=== PATIENT | male | born 1945 | race Caucasian/White ===

== ENCOUNTER → 2019-02-28 14:25 | Outpatient (CLI) | payer MEDICARE, BC, SELFPAY ==
--- NOTE | 2019-02-28 14:33 | XR_ITS ---
XR hip RT 2-3V w/pelvis HISTORY: ITS.REASON: S/P FALL, RT HIP PAIN ORDERING PHYSICIAN: John De Los Santos MD PATIENT AGE: 73 years COMPARISON: None FINDINGS: No fracture or dislocation is evident. No significant degenerative change. No lytic or blastic change. Soft tissue calcification is noted in the left inguinal region. IMPRESSION: Negative right hip
== END ==
PROVIDERS: PCP Family Medicine; Visit Provider Family Medicine
DX: M25.551 Pain in right hip (principal)
CPT/HCPCS: 73502

== ENCOUNTER → 2020-04-12 14:28 | Outpatient (CLI) | payer MEDICARE, BC, SELFPAY ==
--- NOTE | 2020-04-12 14:33 | XR_ITS ---
PROCEDURE: XR KNEE RT 4V CLINICAL INDICATION: knee pain COMPARISON: No exams were available for comparison FINDINGS: No fracture or dislocation. No lytic or blastic change. There is normal mineralization. There are mild osteoarthritic changes of the medial compartment and patellofemoral joint. A small suprapatellar effusion is noted. Other findings:None. 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
--- NOTE | 2020-04-12 14:33 | XR_ITS ---
PROCEDURE: XR KNEE LT 4V CLINICAL INDICATION: knee pain COMPARISON: No exams were available for comparison FINDINGS: No fracture or dislocation. No lytic or blastic change. There is normal mineralization. There are mild osteoarthritic changes of the medial compartment and patellofemoral joint. 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
--- NOTE | 2020-04-12 17:07 | XR_ITS ---
PROCEDURE: XR HAND RT MIN 3V CLINICAL INDICATION: PAIN IN R HAND COMPARISON: No exams were available for comparison FINDINGS: No fracture or dislocation. No lytic or blastic change. There is normal mineralization. There are osteoarthritic changes of the 1st interphalangeal joint. Small metallic fragment is present along the dorsal and proximal aspect of the proximal phalanx of the 2nd finger. Osteoarthritis also at the DIP joint of the 2nd through 5th fingers and the PIP joint of the 5th digit. Other findings:None. IMPRESSION: Osteoarthritic changes Metallic foreign body at the 2nd proximal phalanx Dictated by: Marvin Coleman MD 04/12/2020 22:26 Electronically signed by Marvin Coleman MD in [place] 04/12/2020 22:26
== END ==
PROVIDERS: PCP Family Medicine; Referring Provider Orthopaedic Surgery; Visit Provider Family Medicine
DX: M25.562 Pain in left knee (principal); M25.561 Pain in right knee; M79.641 Pain in right hand
CPT/HCPCS: 73130; 73564

== ENCOUNTER 2021-05-31 09:57 | Emergency (ER) | payer MEDICARE, BC, SELFPAY ==
[2021-05-31 10:56] VITALS: BP 136/70; PULSE 67; RESP 16; TEMP 36.6; O2SAT 96; BMI 25.6
--- NOTE | 2021-05-31 11:06 | HMH.EDUTC ---
[facility] [place] [facility] [place] Clinical Impression: Exposure to COVID-19 virus Disposition: Home, Self-Care Condition on Discharge: Good Instructions: DI for COVID-19 (Suspected or Confirmed ), Preventing the Spread of Coronavirus Discharge Instructions Additional Instructions: Drink plenty of fluids. Take tylenol for pain or fever. Return if you begin to have difficulty breathing. Follow up with your regular doctor. GO TO THE ER FOR ANY CONCERNING OR WORSENING SYMPTOMS Quarantine until you know the results of your covid-19 test. If it is positive, the health department should call you and give you further instructions about your length of Quarantine and other things. Notify your school or workplace of your results and follow their instructions regarding return to work/school. Referrals: John De Los Santos MD [Primary Care Provider] - Time of Disposition: 11:07 Medical Decision Making - Medical Records Medical records reviewed: No: I reviewed the patient's medical records. - Naun Inquiry Pt receiving controlled substance: No Vital Signs: 05/31/21 10:56 05/31/21 11:07 Temperature 97.8 F 97.8 F Temperature Source Oral Pulse Rate 67 Pulse Rate [Left] 67 Respiratory Rate 16 16 Blood Pressure 136/70 Blood Pressure [Right Arm] 136/70 Blood Pressure Mean [Right Arm] 92 02 Sat by Pulse Oximetry 96 [facility] [place] [facility] [place] HPI - General Stated complaint: covid test , exposure Time Seen by Provider: 05/31/21 11:06 Mode of Arrival: Ambulatory Source of Information: Patient Limitations: No Limitations Description of Symptoms (Recalled from Triage Doc. by RN): pt was exposed to covid positive pt on may.27 HEENT Symptoms (Recalled from RN notes): No Resp Symptoms (Recalled from RN notes): No Skin Symptoms (Recalled from RN notes): No MS Symptoms (Recalled from RN notes): No Functional Status (Recalled from RN notes): na - History of Present Illness Provider Complaint: He has been exposed to covid-19 thru having lunch with a friend several days ago. He denies any symptoms so far. - Related Data Home Medications Medication Instructions Recorded Confirmed No Known Home Medications 06/03/20 Allergies Allergy/AdvReac Type Severity Reaction Status Date / Time CLINDAMYCIN Allergy Unknown Uncoded 06/03/20 09:17 From OMNICEF Allergy Unknown Uncoded 09/10/20 09:17 SULFA (SULFONAMIDE) Allergy Unknown Uncoded 06/03/20 09:17 - Worker's Comp Is this a Worker's Comp case?: No [facility] History - Hepatitis A Screen Drug use history?: No High risk sexual behaviors?: No History of sexually transmitted infection?: No Currently employed?: No Childcare worker?: No Do you have indoor plumbing?: Yes Do you have electricity?: Yes Attestation statement:: This patient has been screened for Hepatitis A risk factors. I have reviewed the patient's past medical history: Yes Other Surgeries: Yes: Colonoscopy - Social History Smoking Status: Never smoker Alcohol Intake: never Occupational Status: other ROS Obtained: Yes All systems reviewed & no additional complaints - Constitutional Constitutional: Reports system reviewed and no additional complaints, except as docu - Eyes Eyes: Reports system reviewed and no additional complaints, except as docu - ENT Ears, Nose, Mouth, and Throat: Reports system reviewed and no additional complaints, except as docu - Cardiovascular Cardiovascular: Reports system reviewed and no additional complaints, except as docu - Respiratory Respiratory: Reports system reviewed and no additional complaints, except as docu - Gastrointestinal Gastrointestingal: Reports: system reviewed and no additional complaints, except as docu Physical Exam - General General appearance: alert, in no apparent distress - Head Head exam: atraumatic, normocephalic, normal inspection - Eye Eye exam: Present: normal appearance, PERRL, EOMI - ENT ENT exam: Present: normal exam,
[2021-05-31 11:07] VITALS: BP 136/70; PULSE 67; RESP 16; TEMP 36.6
== END 2021-05-31 11:25 | disposition home or self-care (01) ==
PROVIDERS: Emergency Provider Nurse Practitioner Family; PCP Family Medicine
DX: Z20.822 Contact with and (suspected) exposure to COVID-19 (principal)
CPT/HCPCS: G0463; 99202; U0003

== ENCOUNTER → 2023-03-15 13:02 | Outpatient (CLI) | payer MEDICARE, BC, SELFPAY ==
--- NOTE | 2023-03-15 13:12 | XR_ITS ---
FINAL REPORT CLINICAL HISTORY: Medial right foot pain and swelling COMPARISON: None FINDINGS: RIGHT FOOT 3 views of the right foot were obtained. There is no acute fracture or dislocation. There is a moderate plantar spur. Visualized joint spaces are normally aligned. Soft tissues are unremarkable. IMPRESSION: No acute bony abnormality. Reviewed, Interpreted and Dictated by Adam Lemons MD Transcribed by Shayla Guardado Authenticated and [facility] [place]
--- NOTE | 2023-03-15 13:12 | XR_ITS ---
FINAL REPORT CLINICAL HISTORY: Medial left foot pain and swelling COMPARISON: None FINDINGS: LEFT FOOT Three views of the left foot demonstrate no acute fracture or dislocation. There is a moderate plantar spur. There is mild hypertrophic osteoarthritis in the first IP joint. The visualized joint spaces are normally aligned. The soft tissues are unremarkable. IMPRESSION: No acute bony abnormality. Reviewed, Interpreted and Dictated by Adam Lemons MD Transcribed by Shayla Guardado Authenticated and [facility]
--- NOTE | 2023-03-15 13:12 | XR_ITS ---
FINAL REPORT CLINICAL HISTORY: Medial left ankle pain and swelling COMPARISON: None FINDINGS: LEFT ANKLE Three views demonstrate no acute fracture or dislocation. There is a moderate plantar spur. The mortise is intact. The visualized joint spaces are normally aligned. The soft tissues are unremarkable. IMPRESSION: No acute bony abnormality. Reviewed, Interpreted and Dictated by Adam Lemons MD Transcribed by Shayla Guardado Authenticated and [facility]
--- NOTE | 2023-03-15 13:12 | XR_ITS ---
FINAL REPORT CLINICAL HISTORY: Medial right ankle pain and swelling COMPARISON: None FINDINGS: RIGHT ANKLE 3 views of the right ankle were obtained. There is no acute fracture or dislocation. There is a moderate plantar spur. The mortise is intact. Visualized joint spaces are normally aligned. Soft tissues are unremarkable. IMPRESSION: No acute bony abnormality. Reviewed, Interpreted and Dictated by Adam Lemons MD Transcribed by Shayla Guardado Authenticated and [facility]
== END ==
PROVIDERS: PCP Family Medicine; Visit Provider Nurse Practitioner Family
DX: M25.571 Pain in right ankle and joints of right foot (principal); M25.572 Pain in left ankle and joints of left foot; M79.671 Pain in right foot; M79.672 Pain in left foot
CPT/HCPCS: 73610; 73630

== ENCOUNTER 2023-03-15 17:19 | Emergency (ER) | payer MEDICARE, BC, SELFPAY ==
[2023-03-15 17:28] VITALS: BP 151/72; PULSE 54; RESP 16; TEMP 36.1; O2SAT 99; BMI 24.6
--- NOTE | 2023-03-15 17:44 | PC.NURSE ---
laceration cleaned with saline and hibiclens wrapped in 4x4 and coban
--- NOTE | 2023-03-15 19:03 | PC.NURSE ---
rounded on patient, no needs at this time. at bedside
--- NOTE | 2023-03-15 19:10 | PC.NURSE ---
Report handed off to tool chaser
--- NOTE | 2023-03-15 19:15 | HMH.EDWNDL ---
Discharge Plan Disposition Patient Disposition: Home, Self-Care Chief Complaint: Wound/Laceration Prescriptions Prescriptions: No Action losartan 50 mg tablet 50 mg PO simvastatin 10 mg tablet 10 mg PO tamsulosin 0.4 mg capsule PO Eliquis 5 mg tablet 5 mg PO Multaq 400 mg tablet 400 mg PO omeprazole 20 mg capsule,delayed release(DR/EC) 20 mg PO bupropion HCl 150 mg tablet extended release 24 hr PO desvenlafaxine succinate 100 mg tablet extended release 24 hr 100 mg PO Referrals Follow up/Referrals: John De Los Santos MD [Primary Care Provider] - See instructions Clinical Impressions Clinical Impression: Laceration of left thumb Instructions Patient Instructions: DI for Laceration Repair Discharge ED Provider: Demetrius Corbett Wound/Laceration HPI General Chief Complaint: Wound/Laceration Stated Complaint: AO 03/15,Left thumb laceration Time Seen by Provider: 03/15/23 18:42 Mode of Arrival: Ambulatory Source of Information: Patient and Spouse Limitations: No Limitations Description of Symptoms (Recalled from ER Triage Doc. 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 UTD Tetanus. +Eliquis. Bleeding uncontrolled at this time. History of Present Illness HPI narrative: 77-year-old white male was working in his shop and hack saw blade slipped. He has 1 cm laceration of his. He is on blood thinners and is desiring to have this repaired. He lists allergies to Omnicef sulfa and clindamycin. Other medical problems include bilateral foot and ankle pain and hypertension and atrial fibrillation Related Data Home Medications Medication Instructions Recorded Confirmed apixaban 5 mg tablet (Eliquis) 5 mg PO 03/15/23 03/15/23 bupropion HCl 150 mg 24 hr tablet, tab PO 03/15/23 03/15/23 extended release desvenlafaxine succinate 100 mg 100 mg PO 03/15/23 03/15/23 tablet,extended release 24 hr dronedarone 400 mg tablet (Multaq) 400 mg PO 03/15/23 03/15/23 losartan 50 mg tablet 50 mg PO 03/15/23 03/15/23 omeprazole 20 mg capsule,delayed 20 mg PO 03/15/23 03/15/23 release simvastatin 10 mg tablet 10 mg PO 03/15/23 03/15/23 tamsulosin 0.4 mg capsule cap PO 03/15/23 03/15/23 Allergies Allergy/AdvReac Type Severity Reaction Status Date / Time cefdinir [From Omnicef] AdvReac Verified 03/15/23 11:40 SULFA (SULFONAMIDE) Allergy Unknown Uncoded 06/03/20 09:17 CLINDAMYCIN AdvReac Unknown Uncoded 03/15/23 11:39 [facility] Disclaimer: The information contained in this section may have been updated after the patient was seen, as this information can be updated by other users. Medical History Arthritis Hypertension Social History Smoking Status: Never smoker alcohol intake: never current occupational status: other Travel in the last 8 weeks: None ROS Obtained: Yes Systems reviewed as appropriate & no additional complaints except as documented Physical Exam General General appearance: alert and in no apparent distress Head Head exam: atraumatic and normocephalic Eye Eye exam: Present normal appearance and PERRL Chest Chest inspection: Present normal inspection Respiratory Respiratory exam: Present normal lung sounds bilaterally Cardiovascular Cardiovascular exam: Present regular rate and irregular rhythm Abdominal Exam Abdominal exam: Present soft; Absent tenderness Extremities Exam Extremities exam: Present other (Left thumb laceration) Neurological Exam Neurological exam: Present alert, oriented X3 and CN II-XII intact Medical Decision Making Medical Records MR Comment: He has [id number] white male that is left on a hack saw earlier today. Had a 1 cm laceration which is anesthetized with a digital block with lidocaine without epinephrine. We have prepped with Betadine and
[2023-03-15 20:37] VITALS: BP 138/71; PULSE 62; RESP 16; TEMP 36.1; O2SAT 99
== END 2023-03-15 20:44 | disposition home or self-care (01) ==
PROVIDERS: Emergency Provider Emergency Medicine; PCP Family Medicine
DX: S61.012A Laceration without foreign body of left thumb without damage to nail, initial encounter (principal); I48.91 Unspecified atrial fibrillation; I10 Essential (primary) hypertension; Z79.01 Long term (current) use of anticoagulants; W27.0XXA Contact with workbench tool, initial encounter
CPT/HCPCS: 12001; 73610; 73630; 99283; 99284

== ENCOUNTER 2024-02-13 07:28 | Outpatient (CLI) | payer MEDICARE, BC, SELFPAY ==
--- NOTE | 2024-02-13 | CA_ITS ---
FINAL REPORT TECHNIQUE: Multiple transverse and longitudinal images were performed of the right femoral-popliteal deep venous system with augmentation and compression maneuvers. CLINICAL HISTORY: RIGHT POSTERIOR KNEE PAIN COMPARISON: None FINDINGS: Right lower extremity duplex ultrasound demonstrates normal flow in the deep venous system. There is no abnormal echogenicity to suggest thrombus. There is normal compression and augmentation. There is a 5 cm cyst in the right popliteal fossa. IMPRESSION: No evidence of right DVT. 5 cm popliteal cyst. Reviewed, Interpreted and Dictated by Adam Lemons MD Transcribed by Shayla Guardado Authenticated and [facility]
== END 2024-02-13 23:59 | disposition home or self-care (01) ==
LOC: RT 07:28
PROVIDERS: PCP Family Medicine; Visit Provider Family Medicine
DX: M79.604 Pain in right leg (principal); M79.661 Pain in right lower leg
CPT/HCPCS: 93971

== ENCOUNTER 2024-04-22 12:07 | Emergency (ER) | payer MEDICARE, BC, SELFPAY ==
[2024-04-22] VITALS (11 sets, daily range): BP systolic 121–174; BP diastolic 66–113; PULSE 74–136; RESP 14–20; TEMP 36.7–36.9; O2SAT 90–96; BMI 23.9
[2024-04-22 12:49] LABS: Microscopic, Urine URINE MICROSCOPIC (MICROSCOPIC)
[2024-04-22 12:59] LABS: Appearance,Urine CLEAR (Clear); Bilirubin,Urine Negative (Negative); Blood, Urine TRACE-I (Negative); Color,Urine YELLOW (Yellow); Glucose,Urine (UA) Negative (Negative); Ketones,Urine Negative (Negative); Leukocyte Esterase,Urine Negative (Negative); Nitrate,Urine Negative (Negative); Protein,Urine Negative (Negative); Urobilinogen,Urine 0.2 EU/dl (0.2)
--- NOTE | 2024-04-22 13:09 | CT_ITS ---
FINAL REPORT TECHNIQUE: After the administration of oral and intravenous contrast, axial images were obtained through the abdomen and pelvis by computed tomography. The study was performed with techniques to keep radiation dose as low as reasonably achievable, (ALARA). Individual dose reduction techniques using automated exposure control or adjustment of mA and/or kV according to the patient's size were employed. CLINICAL HISTORY: urinary retention FINDINGS: Abdomen: The lung bases are clear. There is mild fatty infiltration of the liver. The gallbladder is distended. There is a stone in the dependent portion of the gallbladder. There is a small sliding-type hiatal hernia. The spleen, pancreas, adrenals and kidneys appear unremarkable. The aorta is normal in caliber. There is no free fluid or adenopathy. There is mild bilateral hydronephrosis and hydroureter. Pelvis: The appendix is not identified. Ozuna catheter is seen in a decompressed urinary bladder. The prostate is enlarged measuring 6.1 cm in transverse dimension. There is no free fluid or adenopathy. IMPRESSION: Gallstone in the dependent portion of the gallbladder. Mild bilateral hydronephrosis and hydroureter which may be due to mild cystitis or bladder outlet obstruction, favor the former. Reviewed, Interpreted and Dictated by Adam Lemons MD Transcribed by Debby Vicente Authenticated and [facility]
[2024-04-22 13:15] LABS: RBC,Urine Occasional #/hpf (0-3)
--- NOTE | 2024-04-22 13:18 | ED_ITS ---
Discharge Plan Disposition Patient Disposition: Home, Self-Care Condition: Good Prescriptions Prescriptions: No Action losartan 50 mg tablet 50 mg PO simvastatin 10 mg tablet 10 mg PO tamsulosin 0.4 mg capsule PO Eliquis 5 mg tablet 5 mg PO Multaq 400 mg tablet 400 mg PO omeprazole 20 mg capsule,delayed release(DR/EC) 20 mg PO bupropion HCl 150 mg tablet extended release 24 hr PO desvenlafaxine succinate 100 mg tablet extended release 24 hr 100 mg PO Referrals Follow up/Referrals: John De Los Santos MD [Primary Care Provider] - See instructions Activity Restrictions/Add. Instructions Additional Instructions/Restrictions: You were evaluated in the emergency department today. You had a new Rascon catheter placed given that you are not able to urinate. Please follow-up closely with your primary care provider and your urologist for reassessment. Monitor urine output. If you find that you are dumping >200 mL per hour or experience symptoms such as lightheadedness, fainting, or other concerns, please return right away. Clinical Impressions Clinical Impression: Acute urinary retention, Hydronephrosis Instructions Patient Instructions: How to Care for Your Rascon Catheter -- Male, DI for Urinary Retention in Men Print Language Print Language: Surinamese Discharge ED Provider: Ruby Smith General Adult HPI <Keturah Christie MD - Last Filed: 04/22/24 15:10> General Chief complaint: Urogenital-Male Stated complaint: uti Time Seen by Provider: 04/22/24 12:13 Mode of Arrival: Family Vehicle Source of Information: Patient and Spouse Limitations: No Limitations Description of Symptoms (Recalled from ER Triage Doc. by RN): Pt presents to ER with concerns for possible UTI. States he had R knee surgery on Sun (04/16) and developed urinary retention the following day and urology placed rascon cath. Cath was removed yesterday (04/21). Today, pt is having a dull pain to his lower abd with frequency and burning with urination. History of Present Illness HPI narrative: 78-year-old male presents to the ER for concerns of urinary retention. Patient had right knee surgery on 04/16 and had problems with hematuria and urinary retention the following day. Rascon catheter was placed and patient was evaluated by urology who encouraged the catheter to be removed on 04/21. This was removed as directed and patient initially was able to urinate, however his ability to urinate has decreased in the last 24 hours and today he is having persistent pressure and pain in his lower abdomen with frequency and dysuria. He is only able to get out a small amount of urine each time. He states he is supposed to be doing therapy exercises in the prone position but is unable to lay on his stomach due to the discomfort in the low abdomen. Patient is here for further evaluation. He denies any fevers, chills, headache, dizziness, chest pain, shortness of breath, nausea, vomiting, diarrhea, or other associated symptoms. He states he has no complaints or concerns with the knee/leg. Related Data Home Medications ?Medication ?Instructions ?Recorded ?Confirmed apixaban 5 mg tablet (Eliquis) 5 mg PO 03/15/23 03/15/23 bupropion HCl 150 mg 24 hr tablet, tab PO 03/15/23 03/15/23 extended release desvenlafaxine succinate 100 mg 100 mg PO 03/15/23 03/15/23 tablet,extended release 24 hr dronedarone 400 mg tablet (Multaq) 400 mg PO 03/15/23 03/15/23 losartan 50 mg tablet 50 mg PO 03/15/23 03/15/23 omeprazole 20 mg capsule,delayed 20 mg PO 03/15/23 03/15/23 release simvastatin 10 mg tablet 10 mg PO 03/15/23 03/15/23 tamsulosin 0.4 mg capsule cap PO 03/15/23 03/15/23 Allergies Allergy/AdvReac Type Severity Reaction Status Date / Time clindamycin Allergy Unknown Verified 04/22/24 14:06 allergy reaction Sulfa (Sulfonamide Allergy Unknown Verified 04/22/24 14:06 Antibiotics) allergy reaction cefdinir [From Omnicef] AdvReac Unknown Verified 04/22/24 14:06 allergy reaction PFSH <Keturah Christie MD - Last Filed: 04/22/24 15:10> [facility] Disclaimer: The information contained in this section may have been updated after the patient was seen, as this information can be updated by other users. Medical History Arthritis Hypertension Social History Smoking Status: Never smoker alcohol intake: never current occupational status: other Travel in the last 8 weeks: None <Keturah Christie MD - Last Filed: 04/22/24 15:10> ROS Obtained: Yes All systems reviewed & no additional complaints except as documented Physical Exam <Keturah Christie MD - Last Filed: 04/22/24 15:10> General General appearance: alert and in no apparent distress Head Head exam: atraumatic and normocephalic Eye Eye exam: Present PERRL and EOMI ENT ENT exam: Present mucous membranes moist Neck Neck exam: Present normal inspection and full ROM Chest Chest inspection: Present symmetric chest wall rise Respiratory Respiratory exam: Present normal lung sounds bilaterally; Absent respiratory distress, wheezes or stridor Cardiovascular Cardiovascular exam: Present normal rhythm and tachycardia Abdominal Exam Abdominal exam: Present soft and tenderness; Absent distention, guarding or rebound Abdominal tenderness: Present suprapubic and moderate Extremities Exam Extremities exam: Present other (Right knee appears to be healing well, no abnormal swelling, heat, or pain); Absent calf tenderness Back Exam Back exam: Absent CVA tenderness (R) or CVA tenderness (L) Neurological Exam Neurological exam: Present alert and oriented X3; Absent motor sensory deficit Psychiatric Psychiatric exam: Present normal affect and normal mood Skin Skin exam: Present warm and dry Medical Decision Making <Keturah Christie MD - Last Filed: 04/22/24 15:10> Medical Records Medical records reviewed: Yes I reviewed the patient's medical records. Naun Inquiry Pt receiving controlled substance: No Vital Signs: 04/22/24 12:08 04/22/24 12:18 04/22/24 12:30 Temperature 98.4 F Temperature Source Oral Pulse Rate 128 H 111 H Pulse Rate [Right] 129 H Respiratory Rate 16 18 20 Blood Pressure 145/97 H 159/113 H Blood Pressure [Right Arm] 152/102 H Blood Pressure Mean [Right Arm] 118 Blood Pressure Source Blood Pressure Source [Right Arm] Automatic Cuff Blood Pressure Position 02 Sat by Pulse Oximetry 95 96 95 Oxygen Delivery Method Room Air Room Air 04/22/24 13:00 04/22/24 13:30 04/22/24 14:31 Temperature Temperature Source Pulse Rate 131 H 136 H 128 H Pulse Rate [Right] Respiratory Rate 15 15 14 Blood Pressure 174/112 H 142/95 H 138/93 H Blood Pressure [Right Arm] Blood Pressure Mean [Right Arm] Blood Pressure Source Blood Pressure Source [Right Arm] Blood Pressure Position 02 Sat by Pulse Oximetry 93 L 94 L 96 Oxygen Delivery Method Room Air Room Air 04/22/24 15:00 04/22/24 15:30 04/22/24 16:30 Temperature Temperature Source Pulse Rate 74 86 76 Pulse Rate [Right] Respiratory Rate 19 18 18 Blood Pressure 143/86 H 145/91 H 125/66 Blood Pressure [Right Arm] Blood Pressure Mean [Right Arm] Blood Pressure Source Blood Pressure Source [Right Arm] Blood Pressure Position 02 Sat by Pulse Oximetry 91 L 95 92 L Oxygen Delivery Method Room Air Room Air 04/22/24 17:00 04/22/24 17:42 Temperature 98.0 F Temperature Source Oral Pulse Rate 83 87 Pulse Rate [Right] Respiratory Rate 19 16 Blood Pressure 121/70 132/80 Blood Pressure [Right Arm] Blood Pressure Mean [Right Arm] Blood Pressure Source Automatic Cuff Blood Pressure Source [Right Arm] Blood Pressure Position Sitting 02 Sat by Pulse Oximetry 90 L Oxygen Delivery Method Room Air Lab Data Lab Results 04/22/24 12:13: Urine Color Yellow, Urine Appearance Clear, Urine pH 6.0, Ur Specific [place] 1.020, Urine Protein Negative, Urine Glucose (UA) Negative, Urine Ketones Negative, Urine Blood Trace-i, Urine Nitrate Negative, Urine Bilirubin Negative, Urine Urobilinogen 0.2, Ur Leukocyte Esterase Negative, Urine RBC Occasional, Urine WBC None, Ur Squamous Epith Cells None, Urine Bacteria None 04/22/24 13:25: WBC 9.6, RBC 4.52 L, Hgb 14.0 L, Hct 40.5 L, MCV 89.6, MCH 31.0, MCHC 34.5, RDW 14.0, Plt Count 317, MPV 7.4, Neut % (Auto) 69.4, Lymph % (Auto) 19.7, [place] % (Auto) 8.0, Eos % (Auto) 2.3, Baso % (Auto) 0.6, Neut # (Auto) 6.7, Lymph # (Auto) 1.9, [place] # (Auto) 0.8, Eos # (Auto) 0.2, Baso # (Auto) 0.1, Sodium 139, Potassium 4.1, Chloride 105, Carbon Dioxide 27, Anion Gap 11.1, BUN 19, Creatinine 1.00, Estimated Creat Clear 53, Estimated GFR 72, Est GFR ( Amer) 87, Glucose 100, Calcium 10.0, Total Bilirubin 1.0, AST 33, ALT 27, Alkaline Phosphatase 63, Total Protein 6.8, Albumin 4.1, Globulin 2.7, Albumin/Globulin Ratio 1.5 04/22/24 13:25 04/22/24 13:25 Orders (Tests/Meds): ED MEDICATIONS Discontinued Medications Generic Name Dose Route Start Last Admin Trade Name Freq PRN Reason Stop Dose Admin Lactated Ringer's 1,000 mls @ 999 mls/hr 04/22/24 13:09 04/22/24 13:30 Lactated Ringer's 1000 Ml Bag IV 04/22/24 14:09 999 mls/hr .Q1H1M ONE Administration Iopamidol 75 ml 04/22/24 14:04 04/22/24 14:04 Iopamidol-370 (76%);100ml Bottle IV 04/22/24 14:05 75 ml ONCE ONE Administration Sodium Chloride 10 ml 04/22/24 14:04 04/22/24 14:04 Sodium Chloride 0.9% 10ml Syr (Rad Only) IV 04/22/24 14:05 10 ml ONCE ONE Administration ORDERS Category Date Time Status CT abdomen pelvis w con Stat Cat Scan 04/22/24 13:09 Completed CBC w/Auto Diff [Complete Blood Count Auto Diff] Stat Lab 04/22/24 13:25 Completed CMP [Comprehensive Metabolic Panel] Stat Lab 04/22/24 13:25 Completed UA [Urinalysis and Microscopic] Stat Lab 04/22/24 12:13 Completed Medical Decision Narrative: In summary, this 78-year-old male presents to the emergency department today with bladder discomfort, urinary retention. On initial evaluation patient is tachycardic but hemodynamically stable, afebrile, resting comfortably. He has lower abdominal discomfort with palpation and obvious distention of the urinary bladder, no other findings on exam. Right knee appears to be healing well with no findings of abnormal swelling, erythema, or heat. Differential diagnosis includes but is not limited to urinary retention, obstructive nephropathy, electrolyte abnormality, kidney dysfunction, urinary retention, BPH, prostatic mass, other urinary obstruction. Based on these concerns, I ordered urine studies, CT imaging, serum labs. Patient received IV fluids for treatment. Labs personally reviewed demonstrate UA negative for any findings of infection. No leukocytosis, trace anemia, nonactionable, CMP normal, no findings of kidney dysfunction which is reassuring against obstructive nephropathy. CT abdomen pelvis personally interpreted demonstrates hydroureter, hydronephrosis, findings consistent with urinary obstruction but no obvious stone. Radiology read pending. Patient handed off to Dr. Smith at physician shift change pending CT results <Ruby N Luis, DO - Last Filed: 04/22/24 18:27> Vital Signs: 04/22/24 12:08 04/22/24 12:18 04/22/24 12:30 Temperature 98.4 F Temperature Source Oral Pulse Rate 128 H 111 H Pulse Rate [Right] 129 H Respiratory Rate 16 18 20 Blood Pressure 145/97 H 159/113 H Blood Pressure [Right Arm] 152/102 H Blood Pressure Mean [Right Arm] 118 Blood Pressure Source Blood Pressure Source [Right Arm] Automatic Cuff Blood Pressure Position 02 Sat by Pulse Oximetry 95 96 95 Oxygen Delivery Method Room Air Room Air 04/22/24 13:00 04/22/24 13:30 04/22/24 14:31 Temperature Temperature Source Pulse Rate 131 H 136 H 128 H Pulse Rate [Right] Respiratory Rate 15 15 14 Blood Pressure 174/112 H 142/95 H 138/93 H Blood Pressure [Right Arm] Blood Pressure Mean [Right Arm] Blood Pressure Source Blood Pressure Source [Right Arm] Blood Pressure Position 02 Sat by Pulse Oximetry 93 L 94 L 96 Oxygen Delivery Method Room Air Room Air 04/22/24 15:00 04/22/24 15:30 04/22/24 16:30 Temperature Temperature Source Pulse Rate 74 86 76 Pulse Rate [Right] Respiratory Rate 19 18 18 Blood Pressure 143/86 H 145/91 H 125/66 Blood Pressure [Right Arm] Blood Pressure Mean [Right Arm] Blood Pressure Source Blood Pressure Source [Right Arm] Blood Pressure Position 02 Sat by Pulse Oximetry 91 L 95 92 L Oxygen Delivery Method Room Air Room Air 04/22/24 17:00 04/22/24 17:42 Temperature 98.0 F Temperature Source Oral Pulse Rate 83 87 Pulse Rate [Right] Respiratory Rate 19 16 Blood Pressure 121/70 132/80 Blood Pressure [Right Arm] Blood Pressure Mean [Right Arm] Blood Pressure Source Automatic Cuff Blood Pressure Source [Right Arm] Blood Pressure Position Sitting 02 Sat by Pulse Oximetry 90 L Oxygen Delivery Method Room Air Lab Data Lab Results 04/22/24 12:13: Urine Color Yellow, Urine Appearance Clear, Urine pH 6.0, Ur Specific [place] 1.020, Urine Protein Negative, Urine Glucose (UA) Negative, Urine Ketones Negative, Urine Blood Trace-i, Urine Nitrate Negative, Urine Bilirubin Negative, Urine Urobilinogen 0.2, Ur Leukocyte Esterase Negative, Urine RBC Occasional, Urine WBC None, Ur Squamous Epith Cells None, Urine Bacteria None 04/22/24 13:25: WBC 9.6, RBC 4.52 L, Hgb 14.0 L, Hct 40.5 L, MCV 89.6, MCH 31.0, MCHC 34.5, RDW 14.0, Plt Count 317, MPV 7.4, Neut % (Auto) 69.4, Lymph % (Auto) 19.7, [place] % (Auto) 8.0, Eos % (Auto) 2.3, Baso % (Auto) 0.6, Neut # (Auto) 6.7, Lymph # (Auto) 1.9, [place] # (Auto) 0.8, Eos # (Auto) 0.2, Baso # (Auto) 0.1, Sodium 139, Potassium 4.1, Chloride 105, Carbon Dioxide 27, Anion Gap 11.1, BUN 19, Creatinine 1.00, Estimated Creat Clear 53, Estimated GFR 72, Est GFR ( Amer) 87, Glucose 100, Calcium 10.0, Total Bilirubin 1.0, AST 33, ALT 27, Alkaline Phosphatase 63, Total Protein 6.8, Albumin 4.1, Globulin 2.7, Albumin/Globulin Ratio 1.5 Orders (Tests/Meds): ED MEDICATIONS Discontinued Medications Generic Name Dose Route Start Last Admin Trade Name Freq PRN Reason Stop Dose Admin Lactated Ringer's 1,000 mls @ 999 mls/hr 04/22/24 13:09 04/22/24 13:30 Lactated Ringer's 1000 Ml Bag IV 04/22/24 14:09 999 mls/hr .Q1H1M ONE Administration Iopamidol 75 ml 04/22/24 14:04 04/22/24 14:04 Iopamidol-370 (76%);100ml Bottle IV 04/22/24 14:05 75 ml ONCE ONE Administration Sodium Chloride 10 ml 04/22/24 14:04 04/22/24 14:04 Sodium Chloride 0.9% 10ml Syr (Rad Only) IV 04/22/24 14:05 10 ml ONCE ONE Administration ORDERS Category Date Time Status CT abdomen pelvis w con Stat Cat Scan 04/22/24 13:09 Completed CBC w/Auto Diff [Complete Blood Count Auto Diff] Stat Lab 04/22/24 13:25 Completed CMP [Comprehensive Metabolic Panel] Stat Lab 04/22/24 13:25 Completed UA [Urinalysis and Microscopic] Stat Lab 04/22/24 12:13 Completed Medical Decision Narrative: In summary, this 78-year-old male presents to the emergency department today with bladder discomfort, urinary retention. On initial evaluation patient is tachycardic but hemodynamically stable, afebrile, resting comfortably. He has lower abdominal discomfort with palpation and obvious distention of the urinary bladder, no other findings on exam. Right knee appears to be healing well with no findings of abnormal swelling, erythema, or heat. Differential diagnosis includes but is not limited to urinary retention, obstructive nephropathy, electrolyte abnormality, kidney dysfunction, urinary retention, BPH, prostatic mass, other urinary obstruction. Based on these concerns, I ordered urine studies, CT imaging, serum labs. Patient received IV fluids for treatment. Labs personally reviewed demonstrate UA negative for any findings of infection. No leukocytosis, trace anemia, nonactionable, CMP normal, no findings of kidney dysfunction which is reassuring against obstructive nephropathy. CT abdomen pelvis personally interpreted demonstrates hydroureter, hydronephrosis, findings consistent with urinary obstruction but no obvious stone. Radiology read pending. Patient handed off to Dr. Smith at physician shift change pending CT results Luis DO: I assumed care of the patient at 1500. Patient has had 1.5 L of urine output at this point. CT scan does not demonstrate any acutely concerning process aside from hydronephrosis and hydroureter bilaterally in the setting of bladder outflow obstruction. I presume this is from his bladder outflow obstruction and will resolve now that this has been taking care of. Given that the patient had a significant amount of urine output quickly, I concern he could potentially develop postobstructive diuresis. Will monitor him for 2 hours in the emergency department to make sure he does not have greater than 200 cc/h. At 1530, patient was placed in ED observation status pending monitoring of urine output to ensure that he does not reach 1.9 L x 530 p.m. to determine whether or not the patient would be appropriate for discharge versus admission for electrolyte monitoring. The patient was provided serial reevaluations and cardiac monitoring while awaiting ultimate disposition. On multiple subsequent reassessments, the patient's urine output significantly slowed and he only had an additional 200 cc of urine output for the whole 2-hour period. Given this, he does not meet criteria for postobstructive diuresis at this time. He is feeling fine and is able to get up and move around without issue. Given this, at 1740 he was deemed to be appropriate for discharge home with close follow-up with primary care and urology. Strict return precautions were given and I did advise that he monitor his urine output. Patient was discharged after all questions were answered. He was in ED observation status for a period of 2 hours and 10 minutes. Critical Care <Keturha Christie MD - Last Filed: 04/22/24 15:10> Critical Care Time Critical Care Time: No
[2024-04-22] MEDS: LACTATED RINGERS 1000ML 1,000 ML 999 ML IV (13:30)
[2024-04-22 13:44] LABS: Albumin Level 4.1 g/dl (3.5-5.0); Chloride 105 mmol/L (98-107); Potassium 4.1 mmoL/L (3.5-5.1); Sodium 139 mmol/L (136-145)
[2024-04-22 13:47] LABS: Alanine Aminotransferase 27 U/L (12-78); Albumin/Globulin Ratio 1.5 (1.1-1.8); Alkaline Phosphatase 63 U/L (38-126); Anion Gap 11.1 mEq/L (5-15); Aspartate Amino Transferase 33 U/L (17-59); Blood Urea Nitrogen 19 mg/dl (9-20); Carbon Dioxide 27 mmol/L (22.0-30.0); Creatinine Clearance Estimated 53 mL/min (50-200); Estimated Glomerular Filt Rate 72 ml/min (>60); GFR (African American) 87 ML/MIN (>60); Globulin 2.7 g/dL (1.3-3.2); Glucose 100 mg/dl (74-100); Total Protein,Serum 6.8 g/dl (6.3-8.2)
[2024-04-22 13:58] LABS: Basophils # 0.1 K/mm3 (0-0.2); Basophils % 0.6 % (0.1-2.0); Eosinophils # 0.2 K/mm3 (0.0-0.4); Eosinophils % 2.3 % (0.1-12.0); Hematocrit 40.5 % (42.0-52.0); Lymphocytes # 1.9 K/mm3 (0.7-4.5); Lymphocytes % 19.7 % (10-50); Mean Corpuscular HGB Conc 34.5 g/dL (31.8-35.4); Mean Corpuscular Volume 89.6 fl (80-94); Mean Platelet Volume 7.4 fl (7.4-10.4); Monocytes # 0.8 K/mm3 (0.1-1.0); Neutrophils # 6.7 K/mm3 (1.8-7.8); Neutrophils % 69.4 % (37.0-80.0); Platelet Count 317 K/mm3 (142-424); Red Blood Count 4.52 M/mm3 (4.60-6.20); White Blood Count 9.6 K/mm3 (4.8-10.8)
--- NOTE | 2024-04-22 13:59 | PC.NURSE ---
pt taken to ct scan
[2024-04-22] MEDS: IOPAMIDOL-370 (76%);100ML BOTTLE 75 ML IV (14:04)
[2024-04-22] MEDS: SODIUM CHLORIDE 0.9% 10ML SYR (RAD ONLY) 10 ML IV (14:04)
== END 2024-04-22 17:43 | disposition home or self-care (01) ==
PROVIDERS: Emergency Medicine; Emergency Provider Emergency Medicine; PCP Family Medicine
DX: R10.30 Lower abdominal pain, unspecified (principal); N13.30 Unspecified hydronephrosis; N13.4 Hydroureter; K80.20 Calculus of gallbladder without cholecystitis without obstruction; R33.9 Retention of urine, unspecified; R30.0 Dysuria; R35.0 Frequency of micturition; I10 Essential (primary) hypertension
CPT/HCPCS: 51702; 74177; 80053; 81001; 85025; 96360; 99284; J7120; Q9967

== ENCOUNTER 2024-05-08 15:26 | Outpatient (CLI) | payer MEDICARE, BC, SELFPAY ==
[2024-05-08 15:34] LABS: Adenovirus F 40/41, stool Not Detected (NotDetected); Astrovirus Not Detected (NotDetected); Campylobacter Not Detected (NotDetected); Clostridium Difficile A/B, PCR Not Detected (NotDetected); Cryptosporidium Not Detected (NotDetected); Cyclospora Cayetanesis Not Detected (NotDetected); Entamoeba histolytica Not Detected (NotDetected); Enteroaggregative E coli Not Detected (NotDetected); Enteropathogenic E coli Not Detected (NotDetected); Enterotoxigenic E coli Not Detected (NotDetected); Giardia lamblia Not Detected (NotDetected); Norovirus Not Detected (NotDetected); Plesimonas Shigalloides, PCR Not Detected (NotDetected); Rotavirus A Not Detected (NotDetected); Salmonella, PCR Not Detected (NotDetected); Sapovirus Not Detected (NotDetected); Shiga-like toxin E coli Not Detected (NotDetected); Shigella Enterovasive E coli Not Detected (NotDetected); Vibrio Cholerae Not Detected (NotDetected); Vibrio, PCR Not Detected (NotDetected); Yersinia Entercolitica, PCR Not Detected (NotDetected)
== END 2024-05-08 23:59 | disposition home or self-care (01) ==
LOC: LAB.DROPOF 15:29
PROVIDERS: PCP Family Medicine; Visit Provider Family Medicine
DX: R19.7 Diarrhea, unspecified (principal)
CPT/HCPCS: 87507

== ENCOUNTER 2024-05-20 12:40 | Outpatient (CLI) | payer MEDICARE, BC, SELFPAY ==
[2024-05-20] MEDS: ERTAPENEM SODIUM 1 GM in 0.9 % SODIUM CHLORIDE 50 ML IV (12:59)
[2024-05-20] MEDS: SODIUM CHLORIDE 0.9% 50ML BAG 50 ML IV (12:59)
[2024-05-20] MEDS: SODIUM CHLORIDE 0.9% 10ML FLUSH SYRINGE 10 ML IV (12:59)
[2024-05-20 13:00] VITALS: BP 106/55; PULSE 58; RESP 18; TEMP 36.6; O2SAT 98
[2024-05-20 13:50] VITALS: BP 123/58; PULSE 59; RESP 18; O2SAT 98
== END 2024-05-20 13:55 | disposition home or self-care (01) ==
LOC: INF 12:44
PROVIDERS: PCP Family Medicine
DX: N13.30 Unspecified hydronephrosis (principal)
CPT/HCPCS: 96365; J1335

== ENCOUNTER 2024-05-21 09:29 | Outpatient (CLI) | payer MEDICARE, BC, SELFPAY ==
[2024-05-21] MEDS: 0.9 % SODIUM CHLORIDE 50 ML 100 ML IV (09:46)
[2024-05-21] MEDS: ERTAPENEM SODIUM 1 GM in 0.9 % SODIUM CHLORIDE 50 ML IV (09:47)
[2024-05-21] MEDS: SODIUM CHLORIDE 0.9% 10ML FLUSH SYRINGE 10 ML IV (09:47)
[2024-05-21 09:50] VITALS: BP 115/58; PULSE 59; RESP 16; O2SAT 96
[2024-05-21 10:35] VITALS: BP 130/63; PULSE 57; RESP 16
== END 2024-05-21 10:55 | disposition home or self-care (01) ==
LOC: INF 09:31
PROVIDERS: PCP Family Medicine; Visit Provider Internal Medicine Infectious Disease
DX: N39.0 Urinary tract infection, site not specified (principal)
CPT/HCPCS: 96365; J1335

== ENCOUNTER 2024-05-22 09:03 | Outpatient (CLI) | payer MEDICARE, BC, SELFPAY ==
[2024-05-22 09:20] VITALS: BP 109/55; PULSE 55; RESP 18; O2SAT 96
[2024-05-22] MEDS: ERTAPENEM SODIUM 1 GM in 0.9 % SODIUM CHLORIDE 50 ML IV (09:20)
[2024-05-22] MEDS: SODIUM CHLORIDE 0.9% 50ML BAG 50 ML IV (09:20)
[2024-05-22 10:06] VITALS: BP 131/61; PULSE 53; RESP 18; O2SAT 96
== END 2024-05-22 10:06 | disposition home or self-care (01) ==
LOC: INF 09:04
PROVIDERS: PCP Family Medicine; Visit Provider Internal Medicine Infectious Disease
DX: N39.0 Urinary tract infection, site not specified (principal)
CPT/HCPCS: 96365; J1335

== ENCOUNTER 2024-05-23 09:05 | Outpatient (CLI) | payer MEDICARE, BC, SELFPAY ==
[2024-05-23 09:20] VITALS: BP 142/59; PULSE 54; RESP 18; TEMP 36.7; O2SAT 98
[2024-05-23] MEDS: ERTAPENEM SODIUM 1 GM in 0.9 % SODIUM CHLORIDE 50 ML IV (09:20)
[2024-05-23 10:12] VITALS: BP 135/59; PULSE 58; RESP 18; O2SAT 99
[2024-05-23] MEDS: SODIUM CHLORIDE 0.9% 10ML FLUSH SYRINGE 10 ML IV (10:28)
[2024-05-23] MEDS: SODIUM CHLORIDE 0.9% 50ML BAG 50 ML IV (10:28)
== END 2024-05-23 10:15 | disposition home or self-care (01) ==
LOC: INF 09:06
PROVIDERS: PCP Family Medicine; Visit Provider Internal Medicine Infectious Disease
DX: N39.0 Urinary tract infection, site not specified (principal)
CPT/HCPCS: 96365; J1335

== ENCOUNTER 2024-05-24 09:16 | Outpatient (CLI) | payer MEDICARE, BC, SELFPAY ==
[2024-05-24 09:30] VITALS: BP 149/59; PULSE 54; RESP 16; TEMP 36.9; O2SAT 98; BMI 23.0
[2024-05-24] MEDS: ERTAPENEM SODIUM 1 GM in 0.9 % SODIUM CHLORIDE 50 ML IV (09:30)
== END 2024-05-24 10:25 | disposition home or self-care (01) ==
PROVIDERS: PCP Family Medicine; Visit Provider Internal Medicine Infectious Disease
DX: N39.0 Urinary tract infection, site not specified (principal)
CPT/HCPCS: 96365; G0463; J1335

== ENCOUNTER 2024-05-25 08:21 | Outpatient (CLI) | payer MEDICARE, BC, SELFPAY ==
[2024-05-25 08:21] VITALS: BP 133/62; PULSE 69; RESP 16; TEMP 36.6; O2SAT 97
[2024-05-25] MEDS: ERTAPENEM SODIUM 1 GM in 0.9 % SODIUM CHLORIDE 50 ML IV (08:43)
== END 2024-05-25 09:21 | disposition home or self-care (01) ==
LOC: INF 08:23
PROVIDERS: PCP Family Medicine; Visit Provider Internal Medicine Infectious Disease
DX: N39.0 Urinary tract infection, site not specified (principal)
CPT/HCPCS: 96365; G0463; J1335

== ENCOUNTER 2024-05-26 09:15 | Outpatient (CLI) | payer MEDICARE, BC, SELFPAY ==
[2024-05-26] MEDS: ERTAPENEM SODIUM 1 GM in 0.9 % SODIUM CHLORIDE 50 ML IV (09:32)
== END 2024-05-26 23:59 | disposition home or self-care (01) ==
LOC: INF 09:16
PROVIDERS: PCP Family Medicine; Visit Provider Internal Medicine Infectious Disease
DX: N39.0 Urinary tract infection, site not specified (principal)
CPT/HCPCS: 96365; J1335

== ENCOUNTER 2024-06-25 08:00 | Outpatient (RCR) | payer MEDICARE, BC, SELFPAY | END 2024-06-25 23:59 | disposition home or self-care (01) | LOC: PT 08:00 | PROVIDERS: Visit Provider Physician Assistant | DX: M25.561 Pain in right knee (principal); Z96.651 Presence of right artificial knee joint; Z98.890 Other specified postprocedural states | CPT/HCPCS: 97110; 97163 ==